=== PATIENT | female | born 1975 ===

== ENCOUNTER 2017-07-28 09:37 | Observation (INO) | payer MEDICAID, OTHER ==
[2017-07-28] MEDS ORDERED: Nitroglycerin 2% 15 INCH/30 GM TUBE TOP STA (10:01)
--- NOTE | 2017-07-28 10:03 | ED PDOC ---
HPI: Chest Pain Time Seen by Provider: 07/28/17 09:52 Chief Complaint (Nursing): Chest Pain History Per: Patient (Left sided chest pain since last night. Assoc with diaphoresis. S/p stent placement 1 yr ago, pain is similar to pain prior to stent placement.) Onset/Duration Of Symptoms: Days (2) Current Symptoms Are (Timing): Still Present Severity: Mild Pain Scale Rating Of: 3 Quality: Sharp Associated Symptoms: Diaphoresis Modifying Factors: None Exacerbating Factors: None Past Medical History - Medical History PMH: CAD, Diabetes - Surgical History Surgical History: Coronary Stent - Family History Family History: States: Unknown Family Hx - Allergies Allergies/Adverse Reactions: Allergies Allergy/AdvReac Type Severity Reaction Status Date / Time Unobtainable Allergy Verified 07/28/17 10:00 Review of Systems ROS Statement: Except As Marked, All Systems Reviewed And Found Negative Constitutional: Positive for: Sweats Cardiovascular: Positive for: Chest Pain Physical Exam - Reviewed Nursing Documentation Reviewed: Yes Vital Signs Reviewed: Yes - Physical Exam Appears: Positive for: Non-toxic, No Acute Distress Head Exam: Positive for: ATRAUMATIC, NORMAL INSPECTION, NORMOCEPHALIC Skin: Positive for: Normal Color, Warm, DRY Eye Exam: Positive for: EOMI, Normal appearance, PERRL ENT: Positive for: Normal ENT Inspection Neck: Positive for: Normal, Painless ROM Cardiovascular/Chest: Positive for: Regular Rate, Rhythm, Chest Non Tender Respiratory: Positive for: CNT, Normal Breath Sounds Gastrointestinal/Abdominal: Positive for: Normal Exam, Soft Back: Positive for: Normal Inspection Extremity: Positive for: Normal ROM Neurologic/Psych: Positive for: Alert, Oriented Disposition - Clinical Impression Clinical Impression: Chest pain - Patient ED Disposition Is Patient to be Admitted: Yes - Disposition Disposition Time: 10:04 Condition: FAIR Forms: Amnis (Malay) - Pt Status Changed To: Hospital Disposition Of: Observation - POA Present On Arrival: None
--- NOTE | 2017-07-28 10:22 | RAD ---
HISTORY: chest pain COMPARISON: No prior. TECHNIQUE: Chest PA and lateral FINDINGS: LUNGS: No active pulmonary disease. PLEURA: No significant pleural effusion identified. No pneumothorax apparent. CARDIOVASCULAR: Normal. OSSEOUS STRUCTURES: No significant abnormalities. VISUALIZED UPPER ABDOMEN: Normal. OTHER FINDINGS: None. IMPRESSION: No active disease.
[2017-07-28 10:34] LABS: BASO # 0.1 K/uL (0.0-0.2); BASO % 0.9 % (0.0-2.0); EOS % 0.5 % (0.0-4.0); HEMOGLOBIN 13.5 g/dL (12.0-16.0); LYMPH # 1.4 K/uL (1.0-4.3); LYMPH % 24.3 % (20.0-40.0); MEAN CELL VOLUME 92.3 fl (81.0-99.0); MEAN CORPUSCULAR HEMOGLOBIN 31.8 pg (27.0-31.0); MEAN CORPUSCULAR HGB CONC 34.5 g/dL (33.0-37.0); MEAN PLATELET VOLUME 9.5 fl (7.2-11.7); MONO # 0.6 K/uL (0.0-0.8); MONO % 9.7 % (0.0-10.0); NEUT # 3.8 K/uL (1.8-7.0); NEUT % 64.6 % (50.0-75.0); NRBC % 0.2 % (0.0-0.0); RBC 4.24 Mil/uL (3.80-5.20); RED CELL DISTRIBUTION WIDTH 13.4 % (11.5-14.5); WHITE BLOOD COUNT 5.9 K/uL (4.8-10.8)
[2017-07-28] MEDS ORDERED: Nitroglycerin 2% Ointment Foilpak UD TOP ONE (10:41)
[2017-07-28 10:47] LABS: ALBUMIN 4.1 g/dL (3.5-5.0); BLOOD UREA NITROGEN 13 mg/dl (7-17); CALCIUM 9.2 mg/dL (8.4-10.2); GFR AFRICAN-AMERICAN > 60; GFR NON-AFRICAN AMERICAN > 60
[2017-07-28 10:48] LABS: ALB/GLOB RATIO 1.1 (1.0-2.1); ALT/SGPT 28 U/L (9-52); AST/SGOT 27 U/L (14-36)
[2017-07-28] MEDS ORDERED: Potassium Chloride 20 mEq ER Tab PO ONE ×2 (11:50→14:35)
--- NOTE | 2017-07-28 18:21 | CP.PCM.CON ---
History of Present Illness - History of Present Illness History of Present Illness: PT ADMITTED WITH CP AND RECENT HX OF PCI. PTS CP IS LEFT SIDED UNDER BREAST. IT FIRST OCCURED WHEN MOVING FURNITURE AROUND. IT IS EXACERBATED BY HEAVY LIFTING AND COUGHING. THIS IS UNLIKE HER ANGINA WHICH WAS PRESSURE AND RIGHT UE PAIN. PAIN IS NOT RELIEVED WITH NITRO OR ANTIPLTS. NO DYSPNEA, PALP OR DIZZINESS. POSITIVE DIAPHORESIS. PAIN IS REPRODUCIBLE WITH PALP. TROP NEG X 2 , EKG SINUS MIRIAM. Past Patient History - Past Social History Smoking Status: Never Smoked - CARDIAC Hx Cardiac Disorders: Yes - ENDOCRINE/METABOLIC Hx Endocrine Disorders: Yes - MUSCULOSKELETAL/RHEUMATOLOGICAL Hx Musculoskeletal Disorders: Yes - PSYCHIATRIC Hx Psychophysiologic Disorder: Yes - SURGICAL HISTORY Hx Coronary Stent: Yes Meds Allergies/Adverse Reactions: Allergies Allergy/AdvReac Type Severity Reaction Status Date / Time iodine Allergy SWELLING Verified 07/28/17 10:07 latex Allergy RASH Verified 07/28/17 10:07 morphine Allergy SWELLING Verified 07/28/17 10:07 Penicillins Allergy ANAPHYLAXIS Verified 07/28/17 10:07 - Medications Medications: Current Medications Acetaminophen (Tylenol 325mg Tab) 650 mg PO Q4 PRN PRN Reason: Headache Aspirin (Ecotrin) 81 mg PO DAILY [facility] Atorvastatin Calcium (Lipitor) 20 mg PO DAILY [facility] Last Admin: 07/28/17 16:56 Dose: Not Given Clonazepam (Klonopin) 1 mg PO Q12 [facility] Duloxetine HCl (Cymbalta) 60 mg PO QPM [facility] Folic Acid (Folic Acid) 1 mg PO DAILY [facility] Last Admin: 07/28/17 16:45 Dose: 1 mg Gabapentin (Neurontin) 300 mg PO Q8 [facility] Metoprolol Tartrate (Lopressor) 6.25 mg PO Q12 [facility] Nitroglycerin (Nitro-Bid 2% Oint) 0.5 ea TOP Q6 [facility] Quetiapine Fumarate (Seroquel) 25 mg PO HS [facility] Results - Vital Signs Recent Vital Signs: Last Vital Signs Temp 98.4 F 07/28/17 18:02 Pulse 68 07/28/17 18:02 Resp 16 07/28/17 18:02 BP 115/72 07/28/17 18:02 Pulse Ox 98 07/28/17 18:02 - Labs Result Diagrams: 07/28/17 10:27 07/29/17 04:20 Labs: Laboratory Results - last 24 hr 07/28/17 07/28/17 07/28/17 10:27 10:27 16:57 WBC 5.9 RBC 4.24 Hgb 13.5 Hct 39.1 MCV 92.3 MCH 31.8 H MCHC 34.5 RDW 13.4 Plt Count 210 MPV 9.5 Neut % (Auto) 64.6 Lymph % (Auto) 24.3 [place] % (Auto) 9.7 Eos % (Auto) 0.5 Baso % (Auto) 0.9 Neut # (Auto) 3.8 Lymph # (Auto) 1.4 [place] # (Auto) 0.6 Eos # (Auto) 0.0 Baso # (Auto) 0.1 Sodium 137 Potassium 3.3 L Chloride 102 Carbon Dioxide 26 Anion Gap 12 BUN 13 Creatinine 0.5 L Est GFR ( Amer) > 60 Est GFR (Non-Af Amer) > 60 Random Glucose 140 H Calcium 9.2 Total Bilirubin 0.9 AST 27 ALT 28 Alkaline Phosphatase 60 Troponin I < 0.0120 < 0.0120 Total Protein 7.8 Albumin 4.1 Globulin 3.6 Albumin/Globulin Ratio 1.1 Assessment & Plan (1) Sinus bradycardia Status: Acute (2) History of coronary artery stent placement Status: Acute (3) Chest pain Status: Acute - Assessment and Plan (Free Text) Plan: repeat ekg with increased voltage FOR BETTER EVAL OF P WAVES. echo trop are negative check thyroid. PTS PAIN IS MSK IN NATURE. SHE DOES NOT REQUIRE STRESS TESTING.
[2017-07-28] MEDS: Potassium Chloride 20 mEq/15 ml LIQ UD PO SCH (22:07)
[2017-07-28] MEDS: Nitroglycerin 2% Ointment Foilpak UD TOP SCH (22:12)
--- NOTE | 2017-07-29 03:31 | HP ---
HISTORY OF PRESENT ILLNESS: Ms. Maria is a 42-year-old female who was admitted via the emergency room because of left-sided chest pain associated with diaphoresis for the past 2 days prior to presentation, worse on the day of admission. She indicated that she has had this pain on and off for the past 48 hours but did not want to come to the hospital. She, however, showed up because symptoms worsened. She denies palpitations or shortness of breath. She had a history of similar chest pains a year ago and had cardiac stents within. She used to live in [place] and recently moved to [place]. PAST MEDICAL HISTORY: Remarkable for coronary artery disease, diabetes mellitus, and hypertension. FAMILY HISTORY: Remarkable for father who had cardiac disease and brother who also had cardiac disease. SOCIAL HISTORY: She does not smoke or drink and is ; and recently moved to [place] from [place]. REVIEW OF SYSTEMS: Remarkable for occasional chest pains and anxiety. PHYSICAL EXAMINATION: GENERAL: The patient is alert, oriented, appears to be still in some distress because of recurrent chest pain. VITAL SIGNS: Remarkable for blood pressure of 113/68 with a pulse of 68, respiratory rate is 15, O2 sat 99% on room air. She is febrile. SKIN: Shows fair turgor. HEENT: Pupils equal and reactive to light and accommodation. JVP flat. Mouth shows fair hygiene. LUNGS: Clear. HEART: Regular. No murmurs or gallop. No chest wall tenderness. BREASTS: Normal. ABDOMEN: Soft, nontender. No organomegaly. EXTREMITIES: Show no edema or cyanosis. CENTRAL NERVOUS SYSTEM: Grossly intact. LABORATORY DATA: WBC 5.9, hemoglobin 13.5, platelet count 210,000. Sodium 137, potassium 3.3, BUN of 13, creatinine 0.5. Serum glucose 140. Troponin less than 0.012. Chest x-ray, no active disease. Electrocardiogram normal sinus rhythm, nonspecific ST changes. IMPRESSION: Chest pain, one has to rule out acute coronary syndrome in a patient who had cardiac stents placed in the past; history of hypertension; history of diabetes mellitus. PLAN: Monitor the patient in telemetry. Obtain serial cardiac enzymes and EKGs. Obtain cardiology evaluation. We will give nitroglycerin paste to chest wall every 6 hours and aspirin. We will also give beta-blockers. We will continue therapy as ordered. Further therapy will depend on findings. Nitin Mcnulty MD [facility] # [id number]
[2017-07-29] MEDS: Potassium Chloride 20 mEq/15 ml LIQ UD PO SCH (04:30)
[2017-07-29] MEDS: Nitroglycerin 2% Ointment Foilpak UD TOP SCH (05:04)
[2017-07-29 05:38] LABS: BLOOD UREA NITROGEN 12 mg/dl (7-17); GFR AFRICAN-AMERICAN > 60; GFR NON-AFRICAN AMERICAN > 60; HDL CHOLESTEROL 46 MG/DL (30-70)
[2017-07-29 05:48] LABS: LDL CHOLESTEROL 81 mg/dL (0-129)
[2017-07-29 05:49] LABS: T4 7.32 ug/dl (5.5-11.0)
[2017-07-29 08:20] VITALS: RESP 20
--- NOTE | 2017-07-29 09:34 | CARD ---
APPROVED REPORT EKG Measurement Heart [id number] OR 114P-4 [id number] <Conclusion> Sinus rhythm with 2nd degree AV block with 2:1 AV conduction Please repeat to confirm Nonspecific T wave abnormality Abnormal ECG
--- NOTE | 2017-07-29 09:51 | CARD ---
APPROVED REPORT EKG Measurement Heart [id number] <Conclusion> Normal sinus rhythm Nonspecific T wave abnormality Abnormal ECG
--- NOTE | 2017-07-29 10:07 | CP.PCM.PN ---
Subjective - Date & Time of Evaluation Date of Evaluation: 07/29/17 Time of Evaluation: 10:11 - Subjective Subjective: FEELS BETTER LESS CHEST PAIN NO SOB Objective - Vital Signs/Intake and Output Vital Signs (last 24 hours): Temp Pulse Resp BP Pulse Ox 97.6 F 56 L 20 120/76 94 L 07/29/17 08:20 07/29/17 08:20 07/29/17 08:20 07/29/17 08:20 07/29/17 08:20 - Medications Medications: Current Medications Acetaminophen (Tylenol 325mg Tab) 650 mg PO Q4 PRN PRN Reason: Headache Last Admin: 07/28/17 22:12 Dose: 650 mg Aspirin (Ecotrin) 81 mg PO DAILY [facility] Last Admin: 07/29/17 08:26 Dose: 81 mg Atorvastatin Calcium (Lipitor) 20 mg PO DAILY [facility] Last Admin: 07/29/17 08:26 Dose: 20 mg Clonazepam (Klonopin) 1 mg PO Q12 [facility] Last Admin: 07/29/17 08:26 Dose: 1 mg Duloxetine HCl (Cymbalta) 60 mg PO QPM [facility] Last Admin: 07/28/17 22:06 Dose: 60 mg Folic Acid (Folic Acid) 1 mg PO DAILY [facility] Last Admin: 07/29/17 08:26 Dose: 1 mg Gabapentin (Neurontin) 300 mg PO Q8 [facility] Last Admin: 07/29/17 08:26 Dose: 300 mg Metoprolol Tartrate (Lopressor) 6.25 mg PO Q12 [facility] Last Admin: 07/29/17 08:07 Dose: Not Given Nitroglycerin (Nitro-Bid 2% Oint) 0.5 ea TOP Q6 [facility] Last Admin: 07/29/17 05:04 Dose: Not Given Quetiapine Fumarate (Seroquel) 25 mg PO HS [facility] Last Admin: 07/28/17 22:05 Dose: 25 mg - Labs Labs: 07/28/17 10:27 07/29/17 04:20 - Constitutional Appears: No Acute Distress - Head Exam Head Exam: ATRAUMATIC, NORMAL INSPECTION, NORMOCEPHALIC - Eye Exam Eye Exam: EOMI, Normal appearance, PERRL Pupil Exam: NORMAL ACCOMODATION, PERRL - ENT Exam ENT Exam: Mucous Membranes Moist, Normal Exam - Neck Exam Neck Exam: Full ROM, Normal Inspection. absent: Lymphadenopathy - Respiratory Exam Respiratory Exam: Clear to Ausculation Bilateral, NORMAL BREATHING PATTERN - Cardiovascular Exam Cardiovascular Exam: REGULAR RHYTHM, +S1, +S2. absent: Murmur - GI/Abdominal Exam GI & Abdominal Exam: Soft, Normal Bowel Sounds. absent: Tenderness - Rectal Exam Rectal Exam: NORMAL INSPECTION - Extremities Exam Extremities Exam: Full ROM, Normal Capillary Refill, Normal Inspection. absent : Joint Swelling, Pedal Edema - Back Exam Back Exam: NORMAL INSPECTION - Neurological Exam Neurological Exam: Alert, Awake, CN II-XII Intact, Normal Gait, Oriented x3 - Psychiatric Exam Psychiatric exam: Normal Affect, Normal Mood - Skin Skin Exam: Dry, Intact, Normal Color, Warm Assessment and Plan - Assessment and Plan (Free Text) Assessment: CHEST PAIN HX OF ASHD ANXIETY DM HTN BRADYCARDIA RESOLVED Plan: ECHO TODAY D/C LOPRESSOR BECAUSE OF BRADYCARDIA CARDIOLOGY EVAL APPRECIATED FOR D/C HOME IF ECHO IS NON-REVEALING--OUT PT CARDIOLOGY FOLLOW-UP
--- NOTE | 2017-07-29 16:08 | CP.PCM.PN ---
Subjective - Date & Time of Evaluation Date of Evaluation: 07/29/17 Time of Evaluation: 14:00 - Subjective Subjective: PAIN UNCHANGED. ECHO NML EF. Objective - Vital Signs/Intake and Output Vital Signs (last 24 hours): Temp Pulse Resp BP Pulse Ox 98.3 F 55 L 20 118/75 94 L 07/29/17 13:08 07/29/17 13:08 07/29/17 13:08 07/29/17 13:08 07/29/17 13:08 - Medications Medications: Current Medications Acetaminophen (Tylenol 325mg Tab) 650 mg PO Q4 PRN PRN Reason: Headache Last Admin: 07/28/17 22:12 Dose: 650 mg Aspirin (Ecotrin) 81 mg PO DAILY [facility] Last Admin: 07/29/17 08:26 Dose: 81 mg Atorvastatin Calcium (Lipitor) 20 mg PO DAILY [facility] Last Admin: 07/29/17 08:26 Dose: 20 mg Clonazepam (Klonopin) 1 mg PO Q12 [facility] Last Admin: 07/29/17 08:26 Dose: 1 mg Duloxetine HCl (Cymbalta) 60 mg PO QPM [facility] Last Admin: 07/28/17 22:06 Dose: 60 mg Folic Acid (Folic Acid) 1 mg PO DAILY [facility] Last Admin: 07/29/17 08:26 Dose: 1 mg Gabapentin (Neurontin) 300 mg PO Q8 [facility] Last Admin: 07/29/17 08:26 Dose: 300 mg Quetiapine Fumarate (Seroquel) 25 mg PO HS [facility] Last Admin: 07/28/17 22:05 Dose: 25 mg - Labs Labs: 07/28/17 10:27 07/29/17 04:20 - Constitutional Appears: Well - Head Exam Head Exam: ATRAUMATIC, NORMAL INSPECTION, NORMOCEPHALIC - Eye Exam Eye Exam: EOMI, Normal appearance, PERRL Pupil Exam: NORMAL ACCOMODATION, PERRL - ENT Exam ENT Exam: Mucous Membranes Moist, Normal Exam - Neck Exam Neck Exam: Full ROM, Normal Inspection. absent: Lymphadenopathy - Respiratory Exam Respiratory Exam: Clear to Ausculation Bilateral, NORMAL BREATHING PATTERN. absent: Accessory Muscle Use, Chest Wall Tenderness, Decreased Breath Sounds, Prolonged Expiratory Phase, Rales, Rhonchi, Wheezes, Respiratory Distress, Stridor - Cardiovascular Exam Cardiovascular Exam: Bradycardia, REGULAR RHYTHM, Murmur. absent: Tachycardia, Clicks, Diastolic murmur, Gallop, Irregular Rhythm, JVD, RRR, Rubs, +S1, +S2, + S4 - GI/Abdominal Exam GI & Abdominal Exam: Soft, Normal Bowel Sounds - Rectal Exam Rectal Exam: Deferred - Extremities Exam Extremities Exam: Full ROM, Normal Capillary Refill, Normal Inspection. absent : Calf Tenderness, Joint Swelling, Pedal Edema, Tenderness - Back Exam Back Exam: NORMAL INSPECTION. absent: CVA tenderness (L), CVA tenderness (R), Full ROM, muscle spasm, paraspinal tenderness, rash noted, tenderness, vertebral tenderness - Neurological Exam Neurological Exam: Alert, Awake, CN II-XII Intact, Normal Gait, Oriented x3. absent: Abnormal Gait, Altered, Motor Sensory Deficit, Reflexes Normal - Psychiatric Exam Psychiatric exam: Normal Affect, Normal Mood. absent: Agitated, Anxious, Depressed, Flat Affect, Homicidal Ideation, Manic, Suicidal Ideation - Skin Skin Exam: Dry, Intact, Normal Color, Warm. absent: Abrasion, Cyanosis, Diaphoretic, Erythema, Mottled, Pallor, Pallor, Petechiae, Rash, Urticaria, Vesicles Assessment and Plan (1) Sinus bradycardia Status: Acute (2) History of coronary artery stent placement Status: Acute (3) Chest pain Status: Acute (4) Musculoskeletal chest pain Status: Acute - Assessment and Plan (Free Text) Plan: PT IS CLEARED FOR D/C I HAVE ADVISED HER TO CONT HER MEDS F/U IN OFFICE IN 2-4 WEEKS.
[2017-07-29 16:23] VITALS: O2SAT 95
[2017-07-29 20:37] VITALS: BP 114/70; PULSE 63; TEMP 98.3
--- NOTE | 2017-07-30 09:44 | CARD ---
APPROVED REPORT EXAM: Two-dimensional and M-mode echocardiogram with Doppler and color Doppler. Other Information Quality : GoodRhythm : INDICATION Chest Pain 2D DIMENSIONS IVSd1.18 (0.7-1.1cm)LVDd4.77 (3.9-5.9cm) LVOT Diameter2.44 (1.8-2.4cm)PWd0.91 (0.7-1.1cm) IVSs1.35 (0.8-1.2cm)LVDs3.99 (2.5-4.0cm) FS (%) 16.3 %PWs0.81 (0.8-1.2cm) M-Mode DIMENSIONS Left Atrium (MM)4.03 (2.5-4.0cm)IVSd1.17 (0.7-1.1cm) Aortic Root3.20 (2.2-3.7cm)LVDd5.33 (4.0-5.6cm) Aortic Cusp Exc.2.01 (1.5-2.0cm)PWd0.85 (0.7-1.1cm) IVSs1.24 cmFS (%) 20 % LVDs4.27 (2.0-3.8cm)PWs1.10 cm Mitral Valve MV E Fwgqmuuj69.9cm/sMV DECEL [id number] A Gttizsgw24.2cm/s MV GRE74ylQ/A ratio1.3MVA (PHT)2.86cm2 TDI Lateral E' Peak V4.73cm/sMedial E' Peak V3.83cm/sE/Lateral E'9.9 E/Medial E'12.2 Pulmonary Valve PV Peak Jvivfmew44.6cm/s Tricuspid Valve TR Peak Jnmxvrve387ra/sRAP [id number] Peak Gr.16mmHg [id number] LEFT VENTRICLE The left ventricle is normal size. There is normal left ventricular wall thickness. Left ventricle systolic function is normal. The Ejection Fraction is 55-60%. There is normal LV segmental wall motion. The left ventricular diastolic function is normal. RIGHT VENTRICLE The right ventricle is normal size. There is normal right ventricular wall thickness. The right ventricular systolic function is normal. ATRIA The left atrium size is normal. The right atrium size is normal. AORTIC VALVE The aortic valve is normal in structure. No aortic regurgitation is present. There is no aortic valvular stenosis. There is no aortic valvular vegetation. MITRAL VALVE The mitral valve is normal in structure. There is no evidence of mitral valve prolapse. There is no mitral valve stenosis. Mitral regurgitation is trace to mild. TRICUSPID VALVE The tricuspid valve is normal in structure. There is trace to mild tricuspid regurgitation. Right ventricular systolic pressure is estimated at 29 mmHg. There is no pulmonary hypertension. PULMONIC VALVE The pulmonary valve is normal in structure. There is no pulmonic valvular regurgitation. GREAT VESSELS The aortic root is normal in size. The IVC is normal in size and collapses >50% with inspiration. PERICARDIAL EFFUSION The pericardium appears normal. <Conclusion> The left ventricle is normal size. There is normal LV segmental wall motion. Left ventricle systolic function is normal. The Ejection Fraction is 55-60%. The left ventricular diastolic function is normal.
== END 2017-07-29 20:20 | disposition home or self-care (01) ==
LOC: H.ER 09:37 → H.ERHOLD 10:03 → H.TEL 18:30
PROVIDERS: ADMIT Internal Medicine Pulmonary Disease; ATTEND Internal Medicine Pulmonary Disease
DX: R07.89 Other chest pain (principal); E11.9 Type 2 diabetes mellitus without complications; F41.9 Anxiety disorder, unspecified; I10 Essential (primary) hypertension; I25.10 Atherosclerotic heart disease of native coronary artery without angina pectoris; Z95.5 Presence of coronary angioplasty implant and graft; F45.9 Somatoform disorder, unspecified; R00.1 Bradycardia, unspecified
CPT/HCPCS: 36415; 71046; 80048; 80053; 80061; 81025; 82948; 83735; 84436; 84443; 84484; 85025; 93005; 93306; 99285; G0378

== ENCOUNTER 2017-08-24 08:44 | Inpatient (IN) | payer MEDICAID ==
[2017-08-24 08:50] VITALS: BMI 30.9
[2017-08-24] MEDS ORDERED: Sodium Chloride 0.9% 1,000 ML IV STA (08:58)
--- NOTE | 2017-08-24 09:01 | ED PDOC ---
HPI: Abdomen Time Seen by Provider: 08/24/17 08:47 Chief Complaint (Nursing): Fever History Per: Patient Onset/Duration Of Symptoms: Days (2) Current Symptoms Are (Timing): Still Present Severity: Moderate Pain Scale Rating Of: 5 Location Of Pain/Discomfort: LLQ Quality Of Discomfort: Unable To Describe Associated Symptoms: Fever, Nausea, Vomiting, Diarrhea. denies: Urinary Symptoms Exacerbating Factors: None Alleviating Factors: None Additional Complaint(s): Left lower abd pain x 2 days assoc with NVD and fever. Denies bloody or melanotic stools. Denies urinary sxs Past Medical History Vital Signs: Last Vital Signs Temp 101.3 F H 08/24/17 08:47 Pulse 98 H 08/24/17 08:47 Resp BP 109/60 08/24/17 08:47 Pulse Ox 93 L 08/24/17 09:01 - Family History Family History: States: Unknown Family Hx - Home Medications Home Medications: Ambulatory Orders Medication Instructions Recorded Aspirin [Ecotrin] 81 mg PO DAILY 07/28/17 Atorvastatin [Lipitor] 20 mg PO DAILY 07/28/17 Cholecalciferol [Vitamin D 1000 IU] 1,000 unit PO DAILY 07/28/17 Cyanocobalamin [Vitamin B12 1000 1 tab PO DAILY 07/28/17 mcg Tab] DULoxetine [Cymbalta] 60 mg PO QPM 07/28/17 Folic Acid 1 mg PO DAILY 07/28/17 Gabapentin [Neurontin] 300 mg PO Q8 07/28/17 Losartan/Hydrochlorothiazide 1 tab PO DAILY 07/28/17 [Losartan-Hctz 100-12.5 mg Tab] Melatonin 5 mg PO HS PRN 07/28/17 Metoprolol Succinate XL [Toprol XL] 25 mg PO HS 07/28/17 Nitroglycerin [Nitrostat] 0.4 mg SL Q5MIN PRN 07/28/17 Quetiapine Fumarate [Seroquel] 25 mg PO HS 07/28/17 clonazePAM [Klonopin] 1 mg PO Q12 07/28/17 - Allergies Allergies/Adverse Reactions: Allergies Allergy/AdvReac Type Severity Reaction Status Date / Time iodine Allergy SWELLING Verified 07/28/17 10:07 Iodine and Iodide Containing Allergy RASH Verified 08/24/17 08:55 Produc latex Allergy RASH Verified 06/19/18 10:07 morphine Allergy SWELLING Verified 07/28/17 10:07 Penicillins Allergy ANAPHYLAXIS Verified 07/28/17 10:07 seafood Allergy RASH Uncoded 08/24/17 08:57 Review of Systems ROS Statement: Except As Marked, All Systems Reviewed And Found Negative Constitutional: Positive for: Fever Gastrointestinal: Positive for: Nausea, Vomiting, Abdominal Pain, Diarrhea Physical Exam - Reviewed Nursing Documentation Reviewed: Yes Vital Signs Reviewed: Yes - Physical Exam Appears: Positive for: Non-toxic, No Acute Distress Head Exam: Positive for: ATRAUMATIC, NORMAL INSPECTION, NORMOCEPHALIC Skin: Positive for: Normal Color, Warm, DRY Eye Exam: Positive for: EOMI, Normal appearance, PERRL ENT: Positive for: Other (Mucous membranes dry) Neck: Positive for: Normal, Painless ROM Cardiovascular/Chest: Positive for: Regular Rate, Rhythm Respiratory: Positive for: CNT, Normal Breath Sounds Gastrointestinal/Abdominal: Positive for: Soft, Tenderness (LLQ) Back: Positive for: Normal Inspection. Negative for: L CVA Tenderness, R CVA Tenderness Extremity: Positive for: Normal ROM Neurologic/Psych: Positive for: Alert, Oriented - Laboratory Results Result Diagrams: 08/24/17 10:16 08/24/17 10:16 - ECG O2 Sat by Pulse Oximetry: 93 Disposition - Clinical Impression Clinical Impression: SIRS (systemic inflammatory response syndrome) - Patient ED Disposition Is Patient to be Admitted: Yes - Disposition Disposition Time: 16:57 Condition: FAIR Forms: [facility] (Portuguese) - Pt Status Changed To: Hospital Disposition Of: Observation - POA Present On Arrival: None
[2017-08-24 10:22] LABS: BASO % 0.4 % (0.0-2.0); HEMOGLOBIN 13.7 g/dL (12.0-16.0); LYMPH % 8.2 % (20.0-40.0); MEAN CELL VOLUME 90.6 fl (81.0-99.0); MEAN CORPUSCULAR HEMOGLOBIN 32.8 pg (27.0-31.0); MEAN CORPUSCULAR HGB CONC 36.1 g/dL (33.0-37.0); MEAN PLATELET VOLUME 9.9 fl (7.2-11.7); MONO # 1.2 K/uL (0.0-0.8); MONO % 9.5 % (0.0-10.0); NEUT # 10.3 K/uL (1.8-7.0); NEUT % 81.9 % (50.0-75.0); PLATELET COUNT 193 K/uL (130-400); RBC 4.17 Mil/uL (3.80-5.20); RED CELL DISTRIBUTION WIDTH 13.1 % (11.5-14.5); WHITE BLOOD COUNT 12.6 K/uL (4.8-10.8)
[2017-08-24 10:38] LABS: ALB/GLOB RATIO 1.3 (1.0-2.1); ALBUMIN 4.5 g/dL (3.5-5.0); ALT/SGPT 26 U/L (9-52); AST/SGOT 33 U/L (14-36); BLOOD UREA NITROGEN 7 mg/dl (7-17); CALCIUM 9.4 mg/dL (8.4-10.2); GFR AFRICAN-AMERICAN > 60; GFR NON-AFRICAN AMERICAN > 60
[2017-08-24] MEDS ORDERED: Potassium Chloride 20 mEq ER Tab PO ONE ×2 (10:52→11:48)
[2017-08-24 12:02] LABS: BANDS 6 % (0-2); BASOPHIL 1 % (0-2); LYMPHOCYTE 8 % (20-50); MONOCYTE 10 % (0-10); NEUTROPHIL 73 % (42-75); PLATELET ESTIMATE NORMAL (NORMAL); REACTIVE LYMPHOCYTES 2 % (0-0); TOTAL CELLS COUNTED 100
--- NOTE | 2017-08-24 12:53 | CT ---
Date of service: 08/24/2017 PROCEDURE: CT Abdomen and Pelvis without intravenous contrast HISTORY: Abdominal pain COMPARISON: None. TECHNIQUE: CT scan of the abdomen and pelvis was performed without administration of intravenous contrast. Oral contrast was not administered. Coronal and sagittal reformatted images were obtained. Radiation dose: Total exam DLP = 581.07 mGy-cm. This CT exam was performed using one or more of the following dose reduction techniques: Automated exposure control, adjustment of the mA and/or kV according to patient size, and/or use of iterative reconstruction technique. FINDINGS: LOWER THORAX: The visualized lungs are clear. LIVER: There is mild hepatomegaly. No gross lesion or ductal dilatation. GALLBLADDER AND BILE DUCTS: Surgically absent. PANCREAS: Normal in size. No gross lesion or ductal dilatation. SPLEEN: Normal in size. ADRENALS: No discrete nodule. KIDNEYS AND URETERS: Normal in size without nephrolithiasis. No hydronephrosis. No solid mass. VASCULATURE: No aortic aneurysm. BOWEL: The small bowel loops are normal in caliber. The colon is unremarkable. No bowel dilatation or obstruction. APPENDIX: Normal appendix. PERITONEUM: No free fluid. No free air. LYMPH NODES: No enlarged lymph nodes. BLADDER: Decompressed. REPRODUCTIVE: The uterus is normal in size. There is an apparent 4.4 x 2.0 x 4.1 cm fluid density lesion in the left ovary with an apparent septation. BONES: No acute fracture. Within normal limits for the patient's age. OTHER FINDINGS: None. IMPRESSION: 1. No acute abdominal or pelvic abnormality. 2. 4.4 cm presumable complicated cyst in the left ovary. Correlation with pelvic ultrasound is recommended if there is a clinical concern for ovarian torsion. 3. Mild hepatomegaly.
--- NOTE | 2017-08-24 15:02 | RAD ---
Date of service: 08/24/2017 HISTORY: Fever. COMPARISON: 07/28/2017 TECHNIQUE: Chest PA and lateral FINDINGS: LUNGS: No active pulmonary disease. PLEURA: No significant pleural effusion identified. No pneumothorax apparent. CARDIOVASCULAR: Normal. OSSEOUS STRUCTURES: No significant abnormalities. VISUALIZED UPPER ABDOMEN: Normal. OTHER FINDINGS: None. IMPRESSION: No active disease. No significant interval change compared to the prior examination(s).
--- NOTE | 2017-08-24 17:10 | US ---
Date of service: 08/24/2017 HISTORY: ovarian cyst COMPARISON: CT abdomen and pelvis performed earlier the same day TECHNIQUE: Transvaginal pelvic ultrasound was performed. FINDINGS: UTERUS: Measures 7.7 x 5.3 x 3.8 cm. Anteverted, normal in size and appearance. No fibroid or other mass lesion seen. ENDOMETRIUM: Measures 7.2 mm in diameter. The central endometrial echo complex is normal in appearance. CERVIX: No cervical abnormality identified. RIGHT OVARY: Measures 3.7 x 3.1 x 1.8 cm. No solid mass. Normal flow. LEFT OVARY: Measures 3.7 x 2.4 x 2.5 cm. No solid mass. Normal flow. There is a 2.1 x 2.0 x 1.6 cm simple cyst. FREE FLUID: No significant free fluid noted. OTHER FINDINGS: None. IMPRESSION: No evidence for fibroid uterus. 2.1 cm simple cyst in the left ovary. No evidence for torsion.
[2017-08-24] MEDS ORDERED: levoFLOXacin 500 mg in D5W 500 MG/100 ML BAG IVPB ONE ×2 (18:29→19:25)
[2017-08-24] MEDS: levoFLOXacin 500 mg in D5W 500 MG/100 ML BAG IVPB SCH (18:44)
[2017-08-25] MEDS: Metoprolol Succinate 25 mg XL Tab PO SCH ×2 (00:20→21:24)
[2017-08-25] MEDS: Benzocaine/Menthol (Cepacol) Lozenge PO PRN ×3 (00:20→21:27)
[2017-08-25 03:42] LABS: SQUAMOUS EPITHIAL 1 /hpf (0-5); URINE BACTERIA RARE (<OCC); URINE BILIRUBIN NEGATIVE (NEGATIVE); URINE BLOOD NEGATIVE (NEGATIVE); URINE CLARITY SLIGHTY-CLOUDY (Clear); URINE COLOR YELLOW (YELLOW); URINE GLUCOSE (UA) NEG (Normal); URINE LEUKOCYTE ESTERASE NEG Leu/uL (Negative); URINE PROTEIN NEGATIVE (NEGATIVE); URINE UROBILINOGEN 0.2-1.0 mg/dL (0.2-1.0)
[2017-08-25 06:08] LABS: HEMOGLOBIN 12.9 g/dL (12.0-16.0); MEAN CELL VOLUME 91.7 fl (81.0-99.0); MEAN CORPUSCULAR HEMOGLOBIN 32.7 pg (27.0-31.0); MEAN CORPUSCULAR HGB CONC 35.7 g/dL (33.0-37.0); RBC 3.93 Mil/uL (3.80-5.20); RED CELL DISTRIBUTION WIDTH 13.3 % (11.5-14.5); WHITE BLOOD COUNT 10.2 K/uL (4.8-10.8)
[2017-08-25 06:39] LABS: BLOOD UREA NITROGEN 8 mg/dl (7-17); CALCIUM 8.8 mg/dL (8.4-10.2); GFR AFRICAN-AMERICAN > 60; GFR NON-AFRICAN AMERICAN > 60
[2017-08-25] MEDS: Cholecalciferol 1,000 INTLU TAB PO SCH (08:42)
[2017-08-25] MEDS ORDERED: Patient's Own Med (Losartan/Hydrochlorothiazide [Losartan-Hctz 100-12.5 Mg Tab] 1 TAB) PO SCH (09:00)
--- NOTE | 2017-08-25 11:14 | CP.PCM.CON ---
History of Present Illness - History of Present Illness History of Present Illness: 42 yo female admitted with fever sore throat and swollen glands as well as abd pain referred for ID eval PMH- CAD PTCA multiple allergies Review of Systems - Review of Systems All systems: reviewed and no additional remarkable complaints except - Constitutional Constitutional: As Per HPI, Chills, Fatigue, Fever - EENT Eyes: absent: As Per HPI, Blind Spots, Blurred Vision, Change in Vision, Decreased Night Vision, Diplopia, Discharge, Dry Eye, Exophthalmos, Floaters, Irritation, Itchy Eyes, Loss of Peripheral Vision, Pain, Photophobia, Requires Corrective Lenses, Sees Flashes, Spots in Vision, Tunnel Vision, Other Visual Disturbances, Loss of Vision, Other Ears: absent: As Per HPI, Decreased Hearing, Ear Discharge, Ear Pain, Tinnitus, Abnormal Hearing, Disequilibrium, Dizziness, Other Nose/Mouth/Throat: As Per HPI - Breasts Breasts: absent: As Per HPI, Change in Shape, Mass, Pain, Nipple Discharge, Nipple Inversion, Skin Changes, Swelling, Other - Cardiovascular Cardiovascular: absent: As Per HPI, Acrocyanosis, Chest Pain, Chest Pain at Rest , Chest Pain with Activity, Claudication, Diaphoresis, Dyspnea, Dyspnea on Exertion, Edema, Irregular Heart Rhythm, Pain Radiating to Arm/Neck/Jaw, Leg Edema, Leg Ulcers, Lightheadedness, Orthopnea, Palpitations, Paroxysmal Nocturnal Dyspnea, Pedal Edema, Radiating Pain, Rapid Heart Rate, Slow Heart Rate, Syncope, Other - Respiratory Respiratory: As Per HPI - Gastrointestinal Gastrointestinal: absent: As Per HPI, Abdominal Pain, Belching, Bloating, Change in Bowel Habits, Change in Stool Character, Coffee Ground Emesis, Constipation, Cramping, Diarrhea, Dyspepsia, Dysphagia, Early Satiety, Excessive Flatus, Fecal Incontinence, Heartburn, Hematemesis, Hematochezia, Loose Stools, Melena, Nausea, Odynophagia, Temesmus, Vomiting, Other - Genitourinary Genitourinary: absent: As Per HPI, Change in Urinary Stream, Difficulty Urinating, Dysuria, Flank Pain, Hematuria, Pyuria, Nocturia, Urinary Incontinence, Urinary Frequency, Urinary Hesitance, Urinary Urgency, Voiding Freq/Small Amts, Freq UTI, Hx Renal/Bladder Calculi, Hx /Renal Surgery, Bladder Distension, Other - Reproductive: Female Reproductive:Female: absent: As Per HPI, Amenorrhea, Amenorrhea/ Control, Currently Menstual, Cycle <21 Days, Cycle >35 Days, Cycle Variable, Menses 1-7 Days, Menses >/= 8 Days, Menses Variable, Cycle > 4 Weeks Between, No Menses for 6 Months, Heavy Menses, Light Menses, Normal Menses, Spotting Between Cycles , S/P Hysterectomy, Menopausal, Post Menopausal, Premenarche, Abnormal Vaginal Bleeding, Dysmenorrhea, Dyspareunia, Genital Lesions, Genital Pruritis, Pelvic Pain, Prolapse Symptoms, Sexual Dysfunction, Vaginal Discharge, Vaginal Dryness , Vaginal Odor, Vaginal Pruritis, Other - Menstruation Menstruation: absent: As Per HPI, Amenorrhea, Amenorrhea/ Control, Currently Menstual, Cycle <21 Days, Cycle >35 Days, Cycle Variable, Menses 1-7 Days, Menses >/= 8 Days, Menses Variable, Cycle > 4 Weeks Between, No Menses for 6 Months, Heavy Menses, Light Menses, Normal Menses, Spotting Between Cycles , S/P Hysterectomy, Menopausal, Post Menopausal, Premenarche, Abnormal Vaginal Bleeding, Dysmenorrhea, Other - Musculoskeletal Musculoskeletal: As Per HPI - Integumentary Integumentary: absent: As Per HPI, Acne, Alopecia, Bleeding Lesions, Change in Hair, Change in Nails, Change in Pigmentation, Changing Lesions, Dry Skin, Erythema, Furuncle, Hirsutism, Lesions, New Lesions, Non-Healing Lesions, Photosensitivity, Pruritus, Rash, Skin Pain, Skin Ulcer, Sores, Striae, Swelling , Unusual Bruising, Wounds, Jaundice, Other - Neurological Neurological: absent: As Per HPI, Abnormal Gait, Abnormal Hearing, Abnormal Movements, Abnormal Speech, Behavioral Changes, Burning Sensations, Confusion, Convulsions, Disequilibrium, Dizziness, Numbness, Focal Weakness, Frequent Falls , Headaches, Lack of Coordination, Loss of Vision, Memory Loss, Paresthesias, Radicular Pain, Restless Legs, Sensory Deficit, Syncope, Tingling, Tremor, Vertigo, Weakness, Other Visual Disturbances, Other Past Patient History - Past Medical History & Family History Past Medical History?: Yes - Past Social History Smoking Status: Former Smoker - CARDIAC Hx Cardiac Disorders: Yes - PULMONARY Hx Respiratory Disorders: Yes Hx Asthma: Yes (as a child) - NEUROLOGICAL Hx Neurological Disorder: No - HEENT Hx HEENT Problems: No - RENAL Hx Chronic Kidney Disease: No - ENDOCRINE/METABOLIC Hx Endocrine Disorders: Yes - HEMATOLOGICAL/ONCOLOGICAL Hx Blood Disorders: No Hx Blood Transfusions: No - INTEGUMENTARY Hx Dermatological Problems: No - MUSCULOSKELETAL/RHEUMATOLOGICAL Hx Musculoskeletal Disorders: Yes - GASTROINTESTINAL Hx Gastrointestinal Disorders: No - GENITOURINARY/GYNECOLOGICAL Hx Genitourinary Disorders: No - PSYCHIATRIC Hx Psychophysiologic Disorder: Yes - SURGICAL HISTORY Hx Surgeries: Yes Hx Cholecystectomy: Yes Hx Coronary Stent: Yes Hx Tubal Ligation: Yes - ANESTHESIA Hx Anesthesia: Yes Hx Anesthesia Reactions: Yes (as per pt, numbness) Meds Allergies/Adverse Reactions: Allergies Allergy/AdvReac Type Severity Reaction Status Date / Time iodine Allergy SWELLING Verified 07/28/17 10:07 Iodine and Iodide Containing Allergy RASH Verified 08/24/17 08:55 Produc latex Allergy RASH Verified 07/28/17 10:07 morphine Allergy SWELLING Verified 07/28/17 10:07 Penicillins Allergy ANAPHYLAXIS Verified 07/28/17 10:07 seafood Allergy RASH Uncoded 08/24/17 08:57 - Medications Medications: Current Medications Acetaminophen (Tylenol 325mg Tab) 650 mg PO Q4 PRN PRN Reason: Pain, Mild (1-3) Last Admin: 08/25/17 04:58 Dose: 650 mg Aspirin (Ecotrin) 81 mg PO DAILY [facility] [place] Last Admin: 08/25/17 08:44 Dose: 81 mg Atorvastatin Calcium (Lipitor) 20 mg PO DAILY [facility] [place] Last Admin: 08/25/17 08:44 Dose: 20 mg Benzocaine/Menthol (Cepacol Sore Throat) 1 gustavo PO Q3 PRN PRN Reason: Sore Throat Last Admin: 08/25/17 00:20 Dose: 1 gustavo Cholecalciferol (Vitamin D) 1,000 intlu PO DAILY [facility] [place] Last Admin: 08/25/17 08:42 Dose: 1,000 intlu Clonazepam (Klonopin) 1 mg PO Q12 PRN PRN Reason: Anxiety Cyanocobalamin (Vitamin B12 1000 Mcg Tab) 1,000 mcg PO DAILY [facility] [place] Last Admin: 08/25/17 08:43 Dose: 1,000 mcg Duloxetine HCl (Cymbalta) 60 mg PO QPM [facility] [place] Folic Acid (Folic Acid) 1 mg PO DAILY [facility] [place] Last Admin: 08/25/17 08:44 Dose: 1 mg Gabapentin (Neurontin) 300 mg PO Q8 [facility] [place] Last Admin: 08/25/17 08:42 Dose: 300 mg Hydrochlorothiazide (Microzide) 12.5 mg PO DAILY [facility] [place] Last Admin: 08/25/17 08:43 Dose: 12.5 mg Levofloxacin/Dextrose (Levaquin 500mg) 500 mg in 100 mls @ 100 mls/hr IVPB DAILY [facility] [place] PRN Reason: Protocol Last Admin: 08/24/17 18:44 Dose: 100 mls/hr Losartan Potassium (Cozaar) 100 mg PO DAILY [facility] [place] Last Admin: 08/25/17 08:43 Dose: 100 mg Metformin HCl (Glucophage) 500 mg PO DAILY [facility] [place] Last Admin: 08/25/17 08:44 Dose: 500 mg Metoprolol Succinate (Toprol Xl) 25 mg PO [facility] Last Admin: 08/25/17 00:20 Dose: 25 mg Nitroglycerin (Nitrostat Sl Tab) 0.4 mg SL PRN PRN PRN Reason: chest pain Ondansetron HCl (Zofran Inj) 4 mg IVP Q6 PRN PRN Reason: Nausea/Vomiting Last Admin: 08/25/17 05:11 Dose: 4 mg Quetiapine Fumarate (Seroquel) 25 mg PO [facility] Last Admin: 08/25/17 00:21 Dose: 25 mg Physical Exam - Constitutional Appears: No Acute Distress, Chronically Ill - Head Exam Head Exam: NORMOCEPHALIC - Eye Exam Eye Exam: PERRL. absent: Scleral icterus - ENT Exam ENT Exam: Mucous Membranes Dry, Normal External Ear Exam - Neck Exam Neck exam: Negative for: Lymphadenopathy - Respiratory Exam Respiratory Exam: Decreased Breath Sounds - Cardiovascular Exam Cardiovascular Exam: REGULAR RHYTHM, +S1, +S2 - GI/Abdominal Exam GI & Abdominal Exam: Diminished Bowel Sounds, Distended, Soft. absent: Tenderness - Rectal Exam Rectal Exam: Deferred - Exam Exam: NORMAL INSPECTION - Extremities Exam Extremities exam: Positive for: pedal pulses present. Negative for: calf tenderness, pedal edema, tenderness - Back Exam Back exam: absent: CVA tenderness (L), CVA tenderness (R) - Neurological Exam Neurological exam: Alert, CN II-XII Intact, Oriented x3, Reflexes Normal - Psychiatric Exam Psychiatric exam: Anxious - Skin Skin Exam: Dry Results - Vital Signs Recent Vital Signs: Last Vital Signs Temp 98.7 F 08/25/17 08:24 Pulse 81 08/25/17 08:43 Resp 18 08/25/17 08:24 BP 113/76 08/25/17 08:43 Pulse Ox 95 08/25/17 08:24 - Labs Result Diagrams: 08/25/17 04:20 08/25/17 04:20 Labs: Laboratory Results - last 24 hr 08/24/17 08/24/17 08/24/17 10:16 18:52 22:04 WBC RBC Hgb Hct MCV MCH MCHC RDW Plt Count Neutrophils % (Manual) 73 Band Neutrophils % 6 H Lymphocytes % (Manual) 8 L Reactive Lymphs % 2 H Monocytes % (Manual) 10 Basophils % (Manual) 1 Platelet Estimate Normal RBC Morphology Normal ESR Sodium Potassium Chloride Carbon Dioxide Anion Gap BUN Creatinine Est GFR ( Amer) Est GFR (Non-Af Amer) POC Glucose (mg/dL) 149 H Random Glucose Lactic Acid Calcium Urine Color Urine Clarity Urine pH Ur Specific [place] Urine Protein Urine Glucose (UA) Urine Ketones Urine Blood Urine Nitrate Urine Bilirubin Urine Urobilinogen Ur Leukocyte Esterase Urine RBC (Auto) Urine Microscopic WBC Ur Squamous Epith Cells Urine Bacteria Grp A Beta Strep Ag Negative 08/25/17 08/25/17 08/25/17 03:15 04:20 04:20 WBC 10.2 RBC 3.93 Hgb 12.9 Hct 36.1 MCV 91.7 MCH 32.7 H MCHC 35.7 RDW 13.3 Plt Count 166 Neutrophils % (Manual) Band Neutrophils % Lymphocytes % (Manual) Reactive Lymphs % Monocytes % (Manual) Basophils % (Manual) Platelet Estimate RBC Morphology ESR 50 H Sodium 139 Potassium 3.0 L Chloride 101 Carbon Dioxide 24 Anion Gap 17 BUN 8 Creatinine 0.6 L Est GFR ( Amer) > 60 Est GFR (Non-Af Amer) > 60 POC Glucose (mg/dL) Random Glucose 103 Lactic Acid Calcium 8.8 Urine Color Yellow Urine Clarity Slighty-cloudy Urine pH 5.0 Ur Specific [place] 1.021 Urine Protein Negative Urine Glucose (UA) Neg Urine Ketones Negative Urine Blood Negative Urine Nitrate Negative Urine Bilirubin Negative Urine Urobilinogen 0.2-1.0 Ur Leukocyte Esterase Neg Urine RBC (Auto) 2 Urine Microscopic WBC 2 Ur Squamous Epith Cells 1 Urine Bacteria Rare Grp A Beta Strep Ag 08/25/17 08/25/17 04:20 05:17 WBC RBC Hgb Hct MCV MCH MCHC RDW Plt Count Neutrophils % (Manual) Band Neutrophils % Lymphocytes % (Manual) Reactive Lymphs % Monocytes % (Manual) Basophils % (Manual) Platelet Estimate RBC Morphology ESR Sodium Potassium Chloride Carbon Dioxide Anion Gap BUN Creatinine Est GFR ( Amer) Est GFR (Non-Af Amer) POC Glucose (mg/dL) 110 Random Glucose Lactic Acid 0.9 Calcium Urine Color Urine Clarity Urine pH Ur Specific [place] Urine Protein Urine Glucose (UA) Urine Ketones Urine Blood Urine Nitrate Urine Bilirubin Urine Urobilinogen Ur Leukocyte Esterase Urine RBC (Auto) Urine Microscopic WBC Ur Squamous Epith Cells Urine Bacteria Grp A Beta Strep Ag Assessment & Plan (1) SIRS (systemic inflammatory response syndrome) Status: Acute (2) History of coronary artery stent placement Status: Acute (3) Musculoskeletal chest pain Status: Acute - Assessment and Plan (Free Text) Assessment: r/o viral etiology cont iv antibiotics will follow
--- NOTE | 2017-08-25 11:34 | CP.PCM.HP ---
<Marielos Hoff - Last Filed: 08/25/17 11:44> History of Present Illness - History of Present Illness History of Present Illness: CC: n/v/d and subjective fever HPI: 42 YO female with CAD, HLD presented to [facility] ED with abdominal pain, n/v/d and subjective fever. Pt states that her symptoms started initially with sore throat on Thursday, subsequently pt had GI symptoms on Thursday. Pt seen and examined this AM. Endorsing pain when swallowing, tenderness in right side of her neck. Denies chest pain, dyspnea, n/v/d/c, chills and remains afebrile. PMHx: CAD (s/p stent last year), HLD Surghx: stent last year SH: denies Allergies: iodine containing products and penicillin anaphylaxis ED: vitals sig for fever, labs sig for leukocytosis. Present on Admission - Present on Admission Any Indicators Present on Admission: No Review of Systems - Constitutional Constitutional: Fever. absent: Chills - EENT Nose/Mouth/Throat: Sore Throat, Neck Pain (R sided ) - Cardiovascular Cardiovascular: absent: Chest Pain, Dyspnea - Respiratory Respiratory: Cough. absent: Dyspnea - Gastrointestinal Gastrointestinal: absent: Abdominal Pain - Genitourinary Genitourinary: absent: Dysuria Past Patient History - Past Medical History & Family History Past Medical History?: Yes - Past Social History Smoking Status: Former Smoker - CARDIAC Hx Cardiac Disorders: Yes - PULMONARY Hx Respiratory Disorders: Yes Hx Asthma: Yes (as a child) - NEUROLOGICAL Hx Neurological Disorder: No - HEENT Hx HEENT Problems: No - RENAL Hx Chronic Kidney Disease: No - ENDOCRINE/METABOLIC Hx Endocrine Disorders: Yes - HEMATOLOGICAL/ONCOLOGICAL Hx Blood Disorders: No Hx Blood Transfusions: No - INTEGUMENTARY Hx Dermatological Problems: No - MUSCULOSKELETAL/RHEUMATOLOGICAL Hx Musculoskeletal Disorders: Yes - GASTROINTESTINAL Hx Gastrointestinal Disorders: No - GENITOURINARY/GYNECOLOGICAL Hx Genitourinary Disorders: No - PSYCHIATRIC Hx Psychophysiologic Disorder: Yes - SURGICAL HISTORY Hx Surgeries: Yes Hx Cholecystectomy: Yes Hx Coronary Stent: Yes Hx Tubal Ligation: Yes - ANESTHESIA Hx Anesthesia: Yes Hx Anesthesia Reactions: Yes (as per pt, numbness) Meds Allergies/Adverse Reactions: Allergies Allergy/AdvReac Type Severity Reaction Status Date / Time iodine Allergy SWELLING Verified 07/28/17 10:07 Iodine and Iodide Containing Allergy RASH Verified 08/24/17 08:55 Produc latex Allergy RASH Verified 07/28/17 10:07 morphine Allergy SWELLING Verified 07/28/17 10:07 Penicillins Allergy ANAPHYLAXIS Verified 07/28/17 10:07 seafood Allergy RASH Uncoded 08/24/17 08:57 Physical Exam - Constitutional Appears: No Acute Distress - Head Exam Head Exam: ATRAUMATIC - Eye Exam Eye Exam: EOMI - ENT Exam ENT Exam: Mucous Membranes Moist Additional comments: tonsils noted b/l; mild erythema and swollen in R side - Neck Exam Neck exam: Positive for: Tenderness (to palpation of the R side, mild edeam noted but no no erythema. skin intact. ) - Respiratory Exam Respiratory Exam: Clear to Auscultation Bilateral, NORMAL BREATHING PATTERN. absent: Wheezes - Cardiovascular Exam Cardiovascular Exam: REGULAR RHYTHM, +S1, +S2 - GI/Abdominal Exam GI & Abdominal Exam: Normal Bowel Sounds, Soft. absent: Tenderness Results - Vital Signs Recent Vital Signs: Last Vital Signs Temp 98.7 F 08/25/17 08:24 Pulse 81 08/25/17 08:43 Resp 18 08/25/17 08:24 BP 113/76 08/25/17 08:43 Pulse Ox 95 08/25/17 08:24 - Labs Result Diagrams: 08/25/17 04:20 08/25/17 04:20 Labs: Laboratory Results - last 24 hr 08/24/17 08/24/17 08/24/17 10:16 18:52 22:04 WBC RBC Hgb Hct MCV MCH MCHC RDW Plt Count Neutrophils % (Manual) 73 Band Neutrophils % 6 H Lymphocytes % (Manual) 8 L Reactive Lymphs % 2 H Monocytes % (Manual) 10 Basophils % (Manual) 1 Platelet Estimate Normal RBC Morphology Normal ESR Sodium Potassium Chloride Carbon Dioxide Anion Gap BUN Creatinine Est GFR ( Amer) Est GFR (Non-Af Amer) POC Glucose (mg/dL) 149 H Random Glucose Lactic Acid Calcium Urine Color Urine Clarity Urine pH Ur Specific [place] Urine Protein Urine Glucose (UA) Urine Ketones Urine Blood Urine Nitrate Urine Bilirubin Urine Urobilinogen Ur Leukocyte Esterase Urine RBC (Auto) Urine Microscopic WBC Ur Squamous Epith Cells Urine Bacteria Grp A Beta Strep Ag Negative 08/25/17 08/25/17 08/25/17 03:15 04:20 04:20 WBC 10.2 RBC 3.93 Hgb 12.9 Hct 36.1 MCV 91.7 MCH 32.7 H MCHC 35.7 RDW 13.3 Plt Count 166 Neutrophils % (Manual) Band Neutrophils % Lymphocytes % (Manual) Reactive Lymphs % Monocytes % (Manual) Basophils % (Manual) Platelet Estimate RBC Morphology ESR 50 H Sodium 139 Potassium 3.0 L Chloride 101 Carbon Dioxide 24 Anion Gap 17 BUN 8 Creatinine 0.6 L Est GFR ( Amer) > 60 Est GFR (Non-Af Amer) > 60 POC Glucose (mg/dL) Random Glucose 103 Lactic Acid Calcium 8.8 Urine Color Yellow Urine Clarity Slighty-cloudy Urine pH 5.0 Ur Specific [place] 1.021 Urine Protein Negative Urine Glucose (UA) Neg Urine Ketones Negative Urine Blood Negative Urine Nitrate Negative Urine Bilirubin Negative Urine Urobilinogen 0.2-1.0 Ur Leukocyte Esterase Neg Urine RBC (Auto) 2 Urine Microscopic WBC 2 Ur Squamous Epith Cells 1 Urine Bacteria Rare Grp A Beta Strep Ag 08/25/17 08/25/17 04:20 05:17 WBC RBC Hgb Hct MCV MCH MCHC RDW Plt Count Neutrophils % (Manual) Band Neutrophils % Lymphocytes % (Manual) Reactive Lymphs % Monocytes % (Manual) Basophils % (Manual) Platelet Estimate RBC Morphology ESR Sodium Potassium Chloride Carbon Dioxide Anion Gap BUN Creatinine Est GFR ( Amer) Est GFR (Non-Af Amer) POC Glucose (mg/dL) 110 Random Glucose Lactic Acid 0.9 Calcium Urine Color Urine Clarity Urine pH Ur Specific [place] Urine Protein Urine Glucose (UA) Urine Ketones Urine Blood Urine Nitrate Urine Bilirubin Urine Urobilinogen Ur Leukocyte Esterase Urine RBC (Auto) Urine Microscopic WBC Ur Squamous Epith Cells Urine Bacteria Grp A Beta Strep Ag Assessment & Plan - Assessment and Plan (Free Text) Assessment: Assessment/Plan: 42 YO female with PMHx of CAD (s/p stent), HLD is admitted for SIRS. VS stable, afebrile -leukocytosis resolved, pt remains afebrile -Bcx no growth 24 hrs -cont abx -ID consulted -CT of neck for pain and swelling -labs reviewed; hypokalemia; replace electrolytes prn <Fabricio Horvath - Last Filed: 08/26/17 07:32> Results - Vital Signs Recent Vital Signs: Last Vital Signs Temp 98.4 F 08/26/17 05:11 Pulse 72 07/18/18 05:11 Resp 18 08/26/17 05:11 BP 110/70 08/26/17 05:11 Pulse Ox 96 08/26/17 05:11 - Labs Result Diagrams: 08/26/17 04:20 08/26/17 04:20 Labs: Laboratory Results - last 24 hr 08/25/17 08/25/17 08/25/17 11:25 11:25 11:25 WBC RBC Hgb Hct MCV MCH MCHC RDW Plt Count MPV Neut % (Auto) Lymph % (Auto) [place] % (Auto) Eos % (Auto) Baso % (Auto) Neut # (Auto) Lymph # (Auto) [place] # (Auto) Eos # (Auto) Baso # (Auto) Sodium Potassium Chloride Carbon Dioxide Anion Gap BUN Creatinine Est GFR ( Amer) Est GFR (Non-Af Amer) POC Glucose (mg/dL) Random Glucose Hemoglobin A1c 6.4 Calcium Hepatitis A IgM Ab Negative Hep Bs Antigen Negative Hep B Core IgM Ab Negative Hepatitis C Antibody Negative HIV 1&2 Antibody Screen Negative Infectious [place] Assay Influenza Typ A,B (EIA) 08/25/17 08/25/17 08/25/17 11:54 12:07 13:32 WBC RBC Hgb Hct MCV MCH MCHC RDW Plt Count MPV Neut % (Auto) Lymph % (Auto) [place] % (Auto) Eos % (Auto) Baso % (Auto) Neut # (Auto) Lymph # (Auto) [place] # (Auto) Eos # (Auto) Baso # (Auto) Sodium Potassium Chloride Carbon Dioxide Anion Gap BUN Creatinine Est GFR ( Amer) Est GFR (Non-Af Amer) POC Glucose (mg/dL) 118 H Random Glucose Hemoglobin A1c Calcium Hepatitis A IgM Ab Hep Bs Antigen Hep B Core IgM Ab Hepatitis C Antibody HIV 1&2 Antibody Screen Infectious [place] Assay Negative Influenza Typ A,B (EIA) Negative for flu a/b 08/25/17 08/26/17 08/26/17 15:44 04:20 04:20 WBC 7.9 RBC 4.08 Hgb 13.2 Hct 37.9 MCV 92.8 MCH 32.3 H MCHC 34.8 RDW 13.3 Plt Count 166 MPV 10.1 Neut % (Auto) 65.2 Lymph % (Auto) 21.0 [place] % (Auto) 13.1 H Eos % (Auto) 0.1 Baso % (Auto) 0.6 Neut # (Auto) 5.2 Lymph # (Auto) 1.7 [place] # (Auto) 1.0 H Eos # (Auto) 0.0 Baso # (Auto) 0.0 Sodium 138 Potassium 3.4 L Chloride 100 Carbon Dioxide 26 Anion Gap 15 BUN 9 Creatinine 0.5 L Est GFR ( Amer) > 60 Est GFR (Non-Af Amer) > 60 POC Glucose (mg/dL) 126 H Random Glucose 125 H Hemoglobin A1c Calcium 9.1 Hepatitis A IgM Ab Hep Bs Antigen Hep B Core IgM Ab Hepatitis C Antibody HIV 1&2 Antibody Screen Infectious [place] Assay Influenza Typ A,B (EIA) Assessment & Plan (1) SIRS (systemic inflammatory response syndrome) Status: Acute (2) Tonsillopharyngitis Status: Acute (3) Coronary artery disease Status: Acute - Assessment and Plan (Free Text) Plan: I was present during evaluation and discussed with Dr Luis Eduardo mendoza plans of care and mgt. will order Ct of the neck to rule out retropharyngeal abscess.
[2017-08-25] MEDS ORDERED: Potassium Chloride 20 mEq ER Tab PO ONE (11:35)
--- NOTE | 2017-08-25 15:24 | CT ---
Date of service: 08/25/2017 PROCEDURE: CT NECK WITHOUT CONTRAST HISTORY: sore throat, swollen glands COMPARISON: None. TECHNIQUE: CT of the neck without intravenous contrast. Coronal and sagittal reformats generated. Radiation dose: DLP 548.99 mGy-cm This CT exam was performed using one or more of the following dose reduction techniques: Automated exposure control, adjustment of the mA and/or kV according to patient size, and/or use of iterative reconstruction technique. FINDINGS: NASOPHARYNX: Unremarkable. SUPRAHYOID NECK: Unremarkable oropharynx, oral cavity, parapharyngeal space and retropharyngeal space. INFRAHYOID NECK: Unremarkable larynx, hypopharynx, and supraglottic space. Vocal cords intact. MASS: None. GLANDS: Parotid and submandibular glands unremarkable. Normal size thyroid gland, without nodule. LYMPH NODES: Primarily right enlarged lymph nodes levels 2A and 2B. Similar, less pronounced enlarged lymph nodes on the contralateral side CERVICAL SPINE: No fracture or focal lesion. OTHER FINDINGS: None. IMPRESSION: Enlarged level 2A and 2B lymph nodes primarily right-sided likely infectious/ inflammatory. No nasopharyngeal, oropharyngeal or hypopharyngeal masses are identified. Normal appearing tonsils.
[2017-08-25 23:43] LABS: HEPATITIS B SURFACE AG Negative (NEGATIVE)
[2017-08-25 23:49] LABS: HEPATITIS A IGM NEGATIVE (NEGATIVE); HEPATITIS B CORE AB NEGATIVE (NEGATIVE)
[2017-08-26 00:01] LABS: HEPATITIS C ANTIBODY NEGATIVE (NEGATIVE)
[2017-08-26 05:43] LABS: BASO % 0.6 % (0.0-2.0); EOS % 0.1 % (0.0-4.0); HEMOGLOBIN 13.2 g/dL (12.0-16.0); LYMPH # 1.7 K/uL (1.0-4.3); MEAN CELL VOLUME 92.8 fl (81.0-99.0); MEAN CORPUSCULAR HEMOGLOBIN 32.3 pg (27.0-31.0); MEAN CORPUSCULAR HGB CONC 34.8 g/dL (33.0-37.0); MEAN PLATELET VOLUME 10.1 fl (7.2-11.7); MONO % 13.1 % (0.0-10.0); NEUT # 5.2 K/uL (1.8-7.0); NEUT % 65.2 % (50.0-75.0); NRBC % 0.1 % (0.0-0.0); RBC 4.08 Mil/uL (3.80-5.20); RED CELL DISTRIBUTION WIDTH 13.3 % (11.5-14.5); WHITE BLOOD COUNT 7.9 K/uL (4.8-10.8)
[2017-08-26 05:52] LABS: BLOOD UREA NITROGEN 9 mg/dl (7-17); CALCIUM 9.1 mg/dL (8.4-10.2); GFR AFRICAN-AMERICAN > 60; GFR NON-AFRICAN AMERICAN > 60
[2017-08-26] MEDS ORDERED: Potassium Chloride 20 mEq ER Tab PO ONE (07:09)
[2017-08-26] MEDS: Cholecalciferol 1,000 INTLU TAB PO SCH (08:17)
[2017-08-26] MEDS: levoFLOXacin 500 mg in D5W 500 MG/100 ML BAG IVPB SCH (09:24)
--- NOTE | 2017-08-26 11:47 | CP.PCM.PN ---
Subjective - Date & Time of Evaluation Date of Evaluation: 08/26/17 Time of Evaluation: 08:00 - Subjective Subjective: fever last night c/o pain nad Objective - Vital Signs/Intake and Output Vital Signs (last 24 hours): Temp Pulse Resp BP Pulse Ox 97.8 F 71 20 125/85 98 08/26/17 07:46 08/26/17 08:14 08/26/17 07:46 08/26/17 08:14 08/26/17 07:46 - Medications Medications: Current Medications Acetaminophen (Tylenol 325mg Tab) 650 mg PO Q4 PRN PRN Reason: Pain, Mild (1-3) Last Admin: 08/25/17 23:53 Dose: 650 mg Aspirin (Ecotrin) 81 mg PO DAILY [facility] Last Admin: 08/26/17 08:16 Dose: 81 mg Atorvastatin Calcium (Lipitor) 20 mg PO DAILY [facility] Last Admin: 08/26/17 08:15 Dose: 20 mg Benzocaine/Menthol (Cepacol Sore Throat) 1 gustavo PO Q3 PRN PRN Reason: Sore Throat Last Admin: 08/25/17 21:27 Dose: 1 gustavo Cholecalciferol (Vitamin D) 1,000 intlu PO DAILY [facility] Last Admin: 08/26/17 08:17 Dose: 1,000 intlu Clonazepam (Klonopin) 1 mg PO Q12 PRN PRN Reason: Anxiety Cyanocobalamin (Vitamin B12 1000 Mcg Tab) 1,000 mcg PO DAILY [facility] Last Admin: 08/26/17 08:16 Dose: 1,000 mcg Duloxetine HCl (Cymbalta) 60 mg PO QPM [facility] Last Admin: 08/25/17 17:56 Dose: 60 mg Folic Acid (Folic Acid) 1 mg PO DAILY [facility] Last Admin: 08/26/17 08:16 Dose: 1 mg Gabapentin (Neurontin) 300 mg PO Q8 [facility] Last Admin: 08/26/17 08:15 Dose: 300 mg Hydrochlorothiazide (Microzide) 12.5 mg PO DAILY [facility] Last Admin: 08/26/17 08:16 Dose: 12.5 mg Clindamycin Phosphate 600 mg/ (Sodium Chloride) 54 mls @ 54 mls/hr IVPB Q8 RAEGAN PRN Reason: Protocol Lactobacillus Acidophilus (Bacid Acidophilus) 1 cap PO BID [facility] Losartan Potassium (Cozaar) 100 mg PO DAILY [facility] Last Admin: 08/26/17 08:14 Dose: 100 mg Metformin HCl (Glucophage) 500 mg PO DAILY [facility] Last Admin: 08/26/17 08:15 Dose: 500 mg Metoprolol Succinate (Toprol Xl) 25 mg PO [facility] Last Admin: 08/25/17 21:24 Dose: 25 mg Nitroglycerin (Nitrostat Sl Tab) 0.4 mg SL PRN PRN PRN Reason: chest pain Ondansetron HCl (Zofran Inj) 4 mg IVP Q6 PRN PRN Reason: Nausea/Vomiting Last Admin: 08/25/17 05:11 Dose: 4 mg Quetiapine Fumarate (Seroquel) 25 mg PO [facility] Last Admin: 08/25/17 23:54 Dose: 25 mg - Labs Labs: 08/26/17 04:20 08/26/17 04:20 - Constitutional Appears: Non-toxic, Chronically Ill - Head Exam Head Exam: NORMOCEPHALIC - Eye Exam Eye Exam: PERRL - ENT Exam ENT Exam: Mucous Membranes Dry - Neck Exam Neck Exam: absent: Lymphadenopathy - Respiratory Exam Respiratory Exam: Decreased Breath Sounds - Cardiovascular Exam Cardiovascular Exam: REGULAR RHYTHM - GI/Abdominal Exam GI & Abdominal Exam: Distended - Rectal Exam Rectal Exam: Deferred Assessment and Plan (1) SIRS (systemic inflammatory response syndrome) Status: Acute (2) History of coronary artery stent placement Status: Acute (3) Musculoskeletal chest pain Status: Acute - Assessment and Plan (Free Text) Assessment: cultures neg thus far switch to clinda
[2017-08-26] MEDS: Clindamycin 600mg/50ml NS 600 MG/50 ML BAG IVPB SCH ×2 (12:46→17:00)
[2017-08-26] MEDS: Lactobacillus Acidophilus 500 MU Cap PO SCH (16:50)
[2017-08-26] MEDS: Enoxaparin 40 mg Syringe SC SCH (16:50)
[2017-08-26] MEDS ORDERED: methylPREDNISolone 30 MG in Sodium Chloride 0.9% 50 ML IVPB SCH (21:00)
[2017-08-26] MEDS: MethylPREDNISolone 40 mg Vial IVP SCH (21:29)
[2017-08-26] MEDS: Metoprolol Succinate 25 mg XL Tab PO SCH (21:30)
[2017-08-27] MEDS: Clindamycin 600mg/50ml NS 600 MG/50 ML BAG IVPB SCH (01:20)
[2017-08-27 05:47] LABS: HEMOGLOBIN 13.6 g/dL (12.0-16.0); MEAN CELL VOLUME 92.2 fl (81.0-99.0); MEAN CORPUSCULAR HEMOGLOBIN 32.7 pg (27.0-31.0); MEAN CORPUSCULAR HGB CONC 35.5 g/dL (33.0-37.0); RBC 4.16 Mil/uL (3.80-5.20); WHITE BLOOD COUNT 5.7 K/uL (4.8-10.8)
[2017-08-27 06:05] LABS: BLOOD UREA NITROGEN 11 mg/dl (7-17); CALCIUM 9.6 mg/dL (8.4-10.2); GFR AFRICAN-AMERICAN > 60; GFR NON-AFRICAN AMERICAN > 60
[2017-08-27 08:27] VITALS: RESP 20
[2017-08-27] MEDS ORDERED: Clindamycin 600mg/50ml D5W 600 MG/50 ML VIAL IVPB SCH (09:15)
[2017-08-27] MEDS: Lactobacillus Acidophilus 500 MU Cap PO SCH (09:17)
[2017-08-27] MEDS: Cholecalciferol 1,000 INTLU TAB PO SCH (09:22)
[2017-08-27] MEDS: MethylPREDNISolone 40 mg Vial IVP SCH (09:23)
[2017-08-27] MEDS: Enoxaparin 40 mg Syringe SC SCH (09:24)
[2017-08-27] MEDS: Benzocaine/Menthol (Cepacol) Lozenge PO PRN (10:38)
--- NOTE | 2017-08-27 11:59 | CP.PCM.DIS ---
Provider - Provider Date of Admission: 08/26/17 15:17 Attending physician: Fabricio Horvath MD Time Spent in preparation of Discharge (in minutes): 20 Diagnosis - Discharge Diagnosis (1) Lymphadenitis, acute Status: Acute (2) SIRS (systemic inflammatory response syndrome) Status: Resolved (3) Hyperlipemia Status: Chronic (4) Coronary artery disease Status: Chronic Hospital Course - Lab Results Lab Results: Micro Results 08/24/17 10:16 Blood-Venous Blood Culture - Preliminary NO GROWTH AFTER 3 DAYS 08/24/17 18:35 Blood-Venous Blood Culture - Preliminary NO GROWTH AFTER 48 HOURS 08/25/17 03:15 Urine Urine Culture - Final No Growth (<1,000 CFU/ML) 08/24/17 18:52 Throat Group A Strep Throat Culture - Final NORMAL SAPROPHYTIC GEM. CULTURE NEGATIVE FOR BETA STREP GROUP A. Most Recent Lab Values WBC 5.7 K/uL (4.8-10.8) 08/27/17 05:33 RBC 4.16 Mil/uL (3.80-5.20) 08/27/17 05:33 Hgb 13.6 g/dL (12.0-16.0) 08/27/17 05:33 Hct 38.3 % (34.0-47.0) 08/27/17 05:33 MCV 92.2 fl (81.0-99.0) 08/27/17 05:33 MCH 32.7 pg (27.0-31.0) H 08/27/17 05:33 MCHC 35.5 g/dL (33.0-37.0) 08/27/17 05:33 RDW 13.0 % (11.5-14.5) 08/27/17 05:33 Plt Count 196 K/uL (130-400) 08/27/17 05:33 MPV 10.1 fl (7.2-11.7) 08/26/17 04:20 Neut % (Auto) 65.2 % (50.0-75.0) 08/26/17 04:20 Lymph % (Auto) 21.0 % (20.0-40.0) 08/26/17 04:20 [place] % (Auto) 13.1 % (0.0-10.0) H 08/26/17 04:20 Eos % (Auto) 0.1 % (0.0-4.0) 08/26/17 04:20 Baso % (Auto) 0.6 % (0.0-2.0) 08/26/17 04:20 Neut # (Auto) 5.2 K/uL (1.8-7.0) 08/26/17 04:20 Lymph # (Auto) 1.7 K/uL (1.0-4.3) 08/26/17 04:20 [place] # (Auto) 1.0 K/uL (0.0-0.8) H 08/26/17 04:20 Eos # (Auto) 0.0 K/uL (0.0-0.7) 08/26/17 04:20 Baso # (Auto) 0.0 K/uL (0.0-0.2) 08/26/17 04:20 Neutrophils % (Manual) 73 % (42-75) 08/24/17 10:16 Band Neutrophils % 6 % (0-2) H 08/24/17 10:16 Lymphocytes % (Manual) 8 % (20-50) L 08/24/17 10:16 Reactive Lymphs % 2 % (0-0) H 08/24/17 10:16 Monocytes % (Manual) 10 % (0-10) 08/24/17 10:16 Basophils % (Manual) 1 % (0-2) 08/24/17 10:16 Platelet Estimate Normal (NORMAL) 08/24/17 10:16 RBC Morphology Normal (NORMAL) 08/24/17 10:16 ESR 50 mm/hr (0-20) H 08/25/17 04:20 Sodium 137 mmol/l (132-148) 08/27/17 05:33 Potassium 4.1 MMOL/L (3.6-5.0) 08/27/17 05:33 Chloride 98 mmol/L (98-107) 08/27/17 05:33 Carbon Dioxide 25 mmol/L (22-30) 08/27/17 05:33 Anion Gap 18 (10-20) 08/27/17 05:33 BUN 11 mg/dl (7-17) 08/27/17 05:33 Creatinine 0.5 mg/dl (0.7-1.2) L 08/27/17 05:33 Est GFR ( Amer) > 60 08/27/17 05:33 Est GFR (Non-Af Amer) > 60 08/27/17 05:33 POC Glucose (mg/dL) 129 mg/dL (65-110) H 08/26/17 15:53 Random Glucose 193 mg/dL (65-105) H 08/27/17 05:33 Hemoglobin A1c 6.4 % (4.2-6.5) 08/25/17 11:25 Lactic Acid 0.9 MMOL/L (0.7-2.1) 08/25/17 04:20 Calcium 9.6 mg/dL (8.4-10.2) 08/27/17 05:33 Total Bilirubin 0.9 mg/dl (0.2-1.3) 08/24/17 10:16 AST 33 U/L (14-36) 08/24/17 10:16 ALT 26 U/L (9-52) 08/24/17 10:16 Alkaline Phosphatase 60 U/L (38-126) 08/24/17 10:16 Troponin I < 0.0120 ng/mL (0.00-0.120) 08/26/17 20:15 Total Protein 8.0 G/DL (6.3-8.2) 08/24/17 10:16 Albumin 4.5 g/dL (3.5-5.0) 08/24/17 10:16 Globulin 3.5 gm/dL (2.2-3.9) 08/24/17 10:16 Albumin/Globulin Ratio 1.3 (1.0-2.1) 08/24/17 10:16 Urine Color Yellow (YELLOW) 08/25/17 03:15 Urine Clarity Slighty-cloudy (Clear) 08/25/17 03:15 Urine pH 5.0 (5.0-8.0) 08/25/17 03:15 Ur Specific Guys 1.021 (1.003-1.030) 08/25/17 03:15 Urine Protein Negative mg/dL (NEGATIVE) 08/25/17 03:15 Urine Glucose (UA) Neg mg/dL (Normal) 08/25/17 03:15 Urine Ketones Negative mg/dL (NEGATIVE) 08/25/17 03:15 Urine Blood Negative (NEGATIVE) 08/25/17 03:15 Urine Nitrate Negative (NEGATIVE) 08/25/17 03:15 Urine Bilirubin Negative (NEGATIVE) 08/25/17 03:15 Urine Urobilinogen 0.2-1.0 mg/dL (0.2-1.0) 08/25/17 03:15 Ur Leukocyte Esterase Neg Ashkan/uL (Negative) 08/25/17 03:15 Urine RBC (Auto) 2 /hpf (0-3) 08/25/17 03:15 Urine Microscopic WBC 2 /hpf (0-5) 08/25/17 03:15 Ur Squamous Epith Cells 1 /hpf (0-5) 08/25/17 03:15 Urine Bacteria Rare (<OCC) 08/25/17 03:15 EBV Capsid Ag IgG Ab 145.00 U/mL H 08/25/17 11:54 EBV Capsid Ag IgM Ab <36.00 U/mL 08/25/17 11:54 EBV Nuclear Antigen Ab >600.00 U/mL H 08/25/17 11:54 EBV Interpretation See note 08/25/17 11:54 Hepatitis A IgM Ab Negative (NEGATIVE) 08/25/17 11:25 Hep Bs Antigen Negative (NEGATIVE) 08/25/17 11:25 Hep B Core IgM Ab Negative (NEGATIVE) 08/25/17 11:25 Hepatitis C Antibody Negative (NEGATIVE) 08/25/17 11:25 HIV 1&2 Antibody Screen Negative (NEGATIVE) 08/25/17 11:25 Infectious [place] Assay Negative (NEGATIVE) 08/25/17 11:54 Influenza Typ A,B (EIA) Negative for flu a/b (NEGATIVE) 08/25/17 13:32 Grp A Beta Strep Ag Negative (NEGATIVE) 08/24/17 18:52 - Hospital Course Hospital Course: 42 YO female with PMHx of CAD (s/p stent), HLD is admitted for SIRS. SIRS resolved, likely viral in nature, blood work neg. Imaging was significant for lymphadenitis. ID was consulted for persisted fever, given IV abx and fever resolved. Pt feeling better, ambulating and tolerating PO diet. Cleared by ID for discharge, will d/c pt home with follow up with PMD in 1 week. Discharge Exam - Head Exam Head Exam: NORMOCEPHALIC - Eye Exam Eye Exam: EOMI, Normal appearance - ENT Exam ENT Exam: Mucous Membranes Moist - Neck Exam Neck exam: Lymphadenopathy (tenderness in R side of neck, edema improving ) - Respiratory Exam Respiratory Exam: Clear to PA & Lateral. absent: Wheezes - Cardiovascular Exam Cardiovascular Exam: REGULAR RHYTHM, +S1, +S2 - GI/Abdominal Exam GI & Abdominal Exam: Normal Bowel Sounds, Soft. absent: Tenderness - Extremities Exam Extremities exam: normal inspection - Neurological Exam Neurological exam: Alert, Oriented x3 Discharge Plan - Discharge Medications Prescriptions: Clindamycin [Cleocin] 600 mg PO TID #42 cap Ibuprofen 400 mg PO DAILY #30 tablet Pantoprazole [Protonix] 40 mg PO DAILY #30 ect - Follow Up Plan Condition: FAIR Disposition: HOME/ ROUTINE Patient education suggested?: Yes Instructions: Coronary Heart Disease (DC), Chronic Lymphadenitis (DC) Additional Instructions: Please follow up with PMD in 1 week. Referrals: Fabricio Horvath MD [Staff Provider] -
[2017-08-27 12:37] VITALS: BP 123/80; PULSE 91; TEMP 97.5; O2SAT 100
--- NOTE | 2017-08-28 11:15 | PQF ---
PROVIDER RESPONSE TEXT: SIRS, likely viral in origin (non-infectious). Without any organ damage. REVIEWER QUERY TEXT: SIRS Underlying Cause Systemic Inflammatory Response Syndrome (SIRS) is documented in the Medical Record. Please specify th e underlying cause (includes suspected or probable) AFTER WORKUP: Such as: -- Infectious cause / process ( PLEASE DOCUMENT THE CAUSE) - With organ dysfunction -- Non-infectious cause / process ( PLEASE DOCUMENT THE CAUSE) - Without organ dysfunction - With organ dysfunction -- Other, please specify The patient's Clinical Indicators include: Admitted with abdominal pain, nausea, vomiting, diarrhea, sore throat and fever. WBC 5.9--> 12.6 L shift, 6% BANDS. Lactic acid 0.9. EBV Capsid Ag IgG Ab 145, EBV Nuclear Antigen Ab >600. Ultrasound: Simple cyst left ovary. Treated with Clindamycin. Query created by: Alee Birch on 08/27/2017 6:52 AM PROVIDER RESPONSE TEXT: Pts home meds, unable to determine REVIEWER QUERY TEXT: Medication Correlation for Diagnosis Your help is needed in capturing diagnoses for the corresponding medications ordered. Please clarify in the documentation diagnoses for the following medication(s). Medications: Seroquel Metformin Cozaar Neurontin Cymbalta The patient's Clinical Indicators include: Patient with a history of CAD , S/P PTCA is admitted with abdominal pain, nausea, vomiting, diarrhea, sore throat and fever Query created by: Alee Birch on 08/27/2017 6:55 AM Electronically signed by: Marielos Hoff 08/28/2017 11:12 AM
== END 2017-08-27 15:09 | disposition home or self-care (01) | DRG 574 ==
LOC: MERGE 08:44 → H.ER 08:44 → H.ERHOLD 16:55 → H.TEL 21:43 → OBSVTOIN 08-26 15:17
PROVIDERS: ADMIT Family Medicine; ATTEND Family Medicine
DX: L04.9 Acute lymphadenitis, unspecified (principal); R65.10 Systemic inflammatory response syndrome (SIRS) of non-infectious origin without acute organ dysfunction; E87.6 Hypokalemia; I25.10 Atherosclerotic heart disease of native coronary artery without angina pectoris; E78.5 Hyperlipidemia, unspecified; R07.89 Other chest pain; Z87.891 Personal history of nicotine dependence; Z95.5 Presence of coronary angioplasty implant and graft; Z79.82 Long term (current) use of aspirin; Z90.49 Acquired absence of other specified parts of digestive tract; Z88.6 Allergy status to analgesic agent; Z91.041 Radiographic dye allergy status; Z91.040 Latex allergy status; Z88.0 Allergy status to penicillin; Z91.013 Allergy to seafood